=== PATIENT | male | born 1955 | race Caucasian/White ===

== ENCOUNTER 2024-06-16 10:25 | Inpatient (IN) | payer MEDICARE, SELFPAY ==
--- NOTE | 2024-06-13 07:00 | EKG_ITS ---
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
[2024-06-13 07:08] VITALS: BMI 28.4
[2024-06-13 09:41] LABS: Basophils % (Auto) 0 % (0-2.5); Eosinophils # (Auto) 0.3 Thou/mm3 (0.0-0.5); Eosinophils % (Auto) 6 % (0-10); Hematocrit 39.6 % (41.0-53.0); Hemoglobin 13.5 g/dL (13.5-16.0); Immature Granulocytes % (Auto) 0 % (0-0); Immature Granulocytes Auto 0.01 Thou/mm3 (0.00-0.00); Lymphocytes # (Auto) 1.2 Thou/mm3 (1.0-4.8); Lymphocytes % (Auto) 23 % (10-50); Mean Corpuscular HGB Conc 34.1 g/dl (31.0-37.0); Mean Corpuscular Volume 91 fL (80-100); Monocytes # (Auto) 0.5 Thou/mm3 (0.0-0.8); Monocytes % (Auto) 10 % (0-12); Neutrophils # (Auto) 3.3 Thou/mm3 (1.8-7.7); Neutrophils % (Auto) 61 % (37-80); Nucleated Red Blood Cell % 0 /100 WBC (0); Platelet Count 194 Thou/mm3 (140-440); RDW Standard Deviation 41.1 fL (35.1-43.9); Red Blood Count 4.35 Miln/mm3 (4.50-5.90); White Blood Count 5.4 Thou/mm3 (3.8-10.6)
[2024-06-13 10:02] LABS: Alanine Aminotransferase 29 U/L (10-49); Albumin, Serum 4.5 gm/dL (3.4-4.8); Albumin/Globulin Ratio 1.6 (1.2-2.2); Alkaline Phosphatase 101 U/L (46-116); Anion Gap 5 (7-16); Aspartate Amino Transferase 25 U/L (0-34); BUN/Creatinine Ratio 17 Ratio (12-20); Bilirubin,Total 0.7 mg/dL (0.3-1.2); Blood Urea Nitrogen 17 mg/dL (9-23); Calcium 9.9 mg/dL (8.3-10.6); Calcium (Corrected) 9.9 mg/dL (8.5-10.1); Chloride 106 mMol/L (98-107); Estimated Creatinine Clearance 81.1 mL/min (>60); Globulin 2.8 gm/dL (2.3-3.5); Glucose 140 mg/dL (74-106); Osmolality,Calculated 281 (275-295); Potassium 4.7 mMol/L (3.4-5.1); Sodium 139 mMol/L (136-145); Total Protein 7.3 gm/dL (5.7-8.2); eGFR > 60 See Note
--- NOTE | 2024-06-14 13:34 | SUR.PREOP ---
Cardiac records reviewed with Dr Perez.
--- NOTE | 2024-06-15 15:34 | SUR.PREOP ---
Pt notified to come in tomorrow at 1030 for surgery.
[2024-06-16] VITALS (13 sets, daily range): BP systolic 145–179; BP diastolic 74–86; PULSE 69–84; RESP 14–20; TEMP 36.1–36.9; O2SAT 95–99; BMI 27.4
--- NOTE | 2024-06-16 10:53 | CHAP ---
Patient expressed gratitude for visit and prayer.
[2024-06-16] MEDS: RINGERS LACTATED 1000 ML 1,000 ML 20 ML IV (11:04)
--- NOTE | 2024-06-16 14:47 | SUR.OPER ---
(Alesia) updated on case status/progress via phone by Librado HERNÁNDEZ at approx. [phone].
--- NOTE | 2024-06-16 15:39 | PD.SUROPNT ---
Date of Procedure 06/16/24 Pre Op Diagnosis Rectosigmoid tumor Post Op Diagnosis Rectosigmoid tumor Procedure Laparoscopic assisted rectosigmoidectomy Findings Fungating recotsigmoid tumor. No evidence of pelvic or peritoneal nodules. Surface of the liver was smooth without any lesions or nodules. Procedure Description Patient brought into operating room in supine position. After administration of general endotracheal anesthesia, patient was placed in low lithotomy position. His abdomen and perineum prepped and draped in standard surgical manner. A Veress needle was inserted through the umbilicus and pneumoperitoneum was obtained up to 15 mmHg, the Veress needle was then removed. A 5 mm mid epigastric incision was made and 5 mm trocar was placed. Laparoscopic camera was inserted. Under direct visualization a laparoscopic camera a 5 mm trocar was placed in the right mid abdomen, 10 mm trocar placed in right lower quadrant and additional 5 mm trocar was placed in left mid abdomen. Patient was noted to have mildly redundant sigmoid colon. The blue ink marking was identified in the proximal rectum. The mesorectum was divided medially and laterally with harmonic scalpel. Sigmoid colon and descending colon was mobilized by dividing the white line of Toldt. The mesentery was ligated with Enseal harmonic device. Inferior mesenteric artery was ligated near its origin, the inferior mesenteric vein was ligated inferior to the fourth portion of duodenum. Proximal sigmoid near the sigmoid and descending colon junction was divided with [place] stapling device. The mid rectum just distal to the area of blue marking was also divided with stapling device. The end of descending colon was reaching the patient's pelvis without any tension. At this point a small vertical laparotomy incision was made in the infraumbilical region and dissection was deepened into soft tissue. Anterior abdominal fascia was divided and the abdominal cavity was entered. A wound protector was placed. The end of descending colon was brought out of the opening. The end of descending colon was opened, the anvil portion of an EEA stapling device was placed in a pursestring suture using 2-0 Prolene applied. The anal canal and rectum was then sequentially dilated. The anvil stapling device was placed through the patient's anal canal and was advanced anterior to the rectal staple line. The stapler was opened and connected to the anvil, care was taken to make sure orientation was appropriate without tension or any kinking. The stapler was then closed and fired. Staple line was removed, 2 well-formed donuts were retrieved. The integrity of anastomosis was then checked with an air leak test. A rigid proctoscope was placed through the anal canal and air was insufflated. There was no air bubbles in the pelvis assuring anastomosis was airtight. The area was removed and rigid proctoscope was also removed. I reinforced the anastomosis with application of circumferential Lembert sutures using 3-0 silk. The pelvis was washed and irrigated, all the fluids were suctioned and the suction fluid returned clear. Hemostasis was adequate and satisfactory. The specimen was opened on the back table, patient was noted to have a fungating large rectosigmoid tumor with adequate proximal and distal margins. Gowns and gloves were changed. The wound protector was removed. The mini laparotomy fascial defect was closed with PDS strata fix. The wound was washed. The right lower quadrant 10 mm trocar sites fascial defect was also closed with 2-0 Vicryl. All the incisions were closed with gerardo. Appropriate dressings applied. Patient tolerated the procedure well. He was placed in supine position then extubated. He was breathing spontaneously and without difficulty and was transferred to postanesthesia care in stable condition. Anesthesia GETA Pathology / specimen Other (Rectosigmoid) Estimated Blood Loss 50 Condition Stable Disposition PACU Surgeon Mikaela Bills MD Surgical Staff Operation Date: 06/16/24 12:25 Case Staff Anesthesiologist: Matthew Diaz RN First Assistant: Adebayo Mcmanus
--- NOTE | 2024-06-16 15:45 | SUR.PHASEI ---
1545: Pt. AAOx4, vitals stable, breathing unlabored, no complaint of pain or nausea, dressing to ABD CDI, no active bleed noted, ABD Binder in place, report received from MD Diaz and García HERNÁNDEZ.
[2024-06-16] MEDS: KCL 20 mEq/L in 1/2NS 20 MEQ/1,000 ML BAG 75 MEQ IV (16:01)
[2024-06-16] MEDS: MORPHINE SULF 1 MG/ML PCA SYRINGE 30 ML PCA (16:05)
--- NOTE | 2024-06-16 17:20 | SUR.PHASEI ---
1720: Pt. AAOx4, vitals stable, breathing unlabored, complaint of pain, pt. connected to RENDERER Morphine, no complaint of nausea, dressing to ABD CDI, no active bleed noted, ABD Binder in place, report given to Yue HERNÁNDEZ prior to transfer to room 381, family made aware of transfer to room, pt. transferred with all personal belongings.
[2024-06-16] MEDS: CEFOXITIN 2 GM in SODIUM CHLORIDE 0.9% (P) 50 ML IV ×2 (18:10→23:35)
[2024-06-16] MEDS: PANTOPRAZOLE INJ 40 MG VIAL IVP (18:10)
[2024-06-16] MEDS: ACETAMINOPHEN IVPB 1,000 MG/100 ML VIAL 250 MG IV (18:11)
[2024-06-16] MEDS: INSULIN LISPRO (AdmeLOG) 1 UNIT/0.01 ML UNIT SC (18:17)
[2024-06-16] MEDS: ASCORBIC ACID 250 MG TABLET 500 MG PO (20:29)
[2024-06-16] MEDS: DOCUSATE SOD 100 MG CAPSULE PO (20:29)
[2024-06-17] VITALS (13 sets, daily range): BP systolic 132–168; BP diastolic 63–76; PULSE 62–90; RESP 15–21; TEMP 36.4–38; O2SAT 93–98
[2024-06-17] MEDS: INSULIN LISPRO (AdmeLOG) 1 UNIT/0.01 ML UNIT SC (00:07)
[2024-06-17] MEDS: ACETAMINOPHEN IVPB 1,000 MG/100 ML VIAL 250 MG IV ×3 (00:07→12:14)
--- NOTE | 2024-06-17 04:09 | PC.RT ---
PT is in pain, understood instruction well. pt states he will work on IS more during the day when pain is managed better.
[2024-06-17] MEDS: KCL 20 mEq/L in 1/2NS 20 MEQ/1,000 ML BAG 75 MEQ IV (04:28)
[2024-06-17] MEDS: CEFOXITIN 2 GM in SODIUM CHLORIDE 0.9% (P) 50 ML IV ×2 (06:27→12:39)
[2024-06-17] MEDS: amLODIPine BESYLATE 5 MG TABLET 10 MG PO (09:22)
[2024-06-17] MEDS: PANTOPRAZOLE INJ 40 MG VIAL IVP (09:22)
[2024-06-17] MEDS: DOCUSATE SOD 100 MG CAPSULE PO ×2 (09:22→20:24)
[2024-06-17] MEDS: LOSARTAN POTASSIUM 25 MG TABLET 100 MG PO (09:22)
[2024-06-17] MEDS: ASCORBIC ACID 250 MG TABLET 500 MG PO ×2 (09:23→20:25)
[2024-06-17] MEDS: ATORVASTATIN CALCIUM 20 MG TABLET 40 MG PO (09:23)
[2024-06-17] MEDS: ZINC SULFATE 220 MG CAPSULE PO (09:23)
[2024-06-17] MEDS: hydroCHLOROthiazide 12.5 MG CAPSULE 25 MG PO (09:23)
--- NOTE | 2024-06-17 13:34 | ESPR_ITS ---
Documentation for date of: 06/17/24 Subjective Subjective Narrative: Patient is seen and examined. He is complaining of incisional pain, controlled with WAIVER ANALYST and IV Tylenol. He denies nausea or vomiting. He has not passed flatus or bowel movement yet Exam Vital Signs Temp Pulse Resp BP Pulse Ox O2 Del Method O2 Flow Rate 97.8 F 73 18 161/71 H 94 L Room Air 1.5 06/17/24 12:00 06/17/24 12:00 06/17/24 12:00 06/17/24 12:00 06/17/24 12:00 06/17/24 12:00 06/17/24 08:00 Constitutional Constitutional: no acute distress Routine Abdominal Exam Abdominal: Present soft, tenderness (Shayla-incisional tenderness. Incisions are clean, dry and intact) and distended (Mildly distended); Absent normoactive bowel sounds Assessment & Plan Assessment Additional comments: Postop day #1 status post laparoscopic assisted rectosigmoidectomy Plan Will keep n.p.o. with ice chips. Use incentive spirometer and increase ambulation. Procedures Procedures Laparoscopic assisted rectosigmoidectomy
[2024-06-17] MEDS: MORPHINE SULF 1 MG/ML PCA SYRINGE 30 ML PCA (14:06)
[2024-06-17] MEDS: KCL 20 mEq/L in 1/2NS 20 MEQ/1,000 ML BAG 60 MEQ IV (17:00)
[2024-06-18] VITALS (9 sets, daily range): BP systolic 151–176; BP diastolic 65–83; PULSE 72–100; RESP 16–93; TEMP 36.1–37.1; O2SAT 90–98
[2024-06-18 06:15] LABS: Basophils % (Auto) 0 % (0-2.5); Eosinophils # (Auto) 0.1 Thou/mm3 (0.0-0.5); Eosinophils % (Auto) 1 % (0-10); Hematocrit 35.6 % (41.0-53.0); Hemoglobin 12.2 g/dL (13.5-16.0); Immature Granulocytes % (Auto) 0 % (0-0); Immature Granulocytes Auto 0.04 Thou/mm3 (0.00-0.00); Lymphocytes # (Auto) 0.8 Thou/mm3 (1.0-4.8); Lymphocytes % (Auto) 6 % (10-50); Mean Corpuscular HGB Conc 34.3 g/dl (31.0-37.0); Mean Corpuscular Volume 90 fL (80-100); Monocytes # (Auto) 1.2 Thou/mm3 (0.0-0.8); Monocytes % (Auto) 9 % (0-12); Neutrophils # (Auto) 11.1 Thou/mm3 (1.8-7.7); Neutrophils % (Auto) 84 % (37-80); Nucleated Red Blood Cell % 0 /100 WBC (0); Platelet Count 173 Thou/mm3 (140-440); RDW Standard Deviation 41.1 fL (35.1-43.9); Red Blood Count 3.94 Miln/mm3 (4.50-5.90); White Blood Count 13.2 Thou/mm3 (3.8-10.6)
[2024-06-18 06:32] LABS: Anion Gap 8 (7-16); BUN/Creatinine Ratio 14 Ratio (12-20); Blood Urea Nitrogen 14 mg/dL (9-23); Calcium 9.6 mg/dL (8.3-10.6); Calcium (Corrected) 9.6 mg/dL (8.5-10.1); Carbon Dioxide 24.2 mMol/L (20.0-31.0); Chloride 103 mMol/L (98-107); Estimated Creatinine Clearance 78.3 mL/min (>60); Glucose 110 mg/dL (74-106); Magnesium 1.8 mg/dL (1.6-2.6); Osmolality,Calculated 271 (275-295); Phosphorous 3.1 mg/dL (2.4-5.1); Potassium 4.4 mMol/L (3.4-5.1); Sodium 135 mMol/L (136-145); eGFR > 60 See Note
[2024-06-18] MEDS: PANTOPRAZOLE INJ 40 MG VIAL IVP (08:48)
[2024-06-18] MEDS: DOCUSATE SOD 100 MG CAPSULE PO ×2 (08:49→20:35)
[2024-06-18] MEDS: hydroCHLOROthiazide 12.5 MG CAPSULE 25 MG PO (08:49)
[2024-06-18] MEDS: LOSARTAN POTASSIUM 25 MG TABLET 100 MG PO (08:49)
[2024-06-18] MEDS: ATORVASTATIN CALCIUM 20 MG TABLET 40 MG PO (08:50)
[2024-06-18] MEDS: ZINC SULFATE 220 MG CAPSULE PO (08:50)
[2024-06-18] MEDS: ASCORBIC ACID 250 MG TABLET 500 MG PO ×2 (08:50→20:34)
[2024-06-18] MEDS: amLODIPine BESYLATE 5 MG TABLET 10 MG PO (08:50)
[2024-06-18] MEDS: ENOXAPARIN SOD INJ 40 MG/0.4 ML SYRINGE SC (08:51)
[2024-06-18] MEDS: KCL 20 mEq/L in 1/2NS 20 MEQ/1,000 ML BAG 60 MEQ IV (08:51)
--- NOTE | 2024-06-18 11:50 | CHAP ---
Patient was visited by the Spiritual Care Volunteer who prayed for them. (Volunteer was in the hospital from 10:13-11:50).
--- NOTE | 2024-06-18 12:04 | PD.SURPROG ---
Documentation for date of: 06/18/24 Subjective Subjective Narrative: Patient is seen and examined. Pain is improving. He denies nausea or vomiting. He started passing flatus Exam Vital Signs Temp Pulse Resp BP Pulse Ox O2 Del Method O2 Flow Rate 96.9 F 82 18 164/72 H 90 L Room Air 2 06/18/24 08:00 06/18/24 08:50 06/18/24 08:00 06/18/24 08:50 06/18/24 08:00 06/18/24 08:00 06/18/24 06:57 Constitutional Constitutional: no acute distress Routine Abdominal Exam Comments: Abdomen is soft with hypoactive bowel sounds. Minimally distended. Incisions with dressings clean, dry and intact Assessment & Plan Assessment Additional comments: Postop day #2 status post laparoscopic assisted rectosigmoidectomy Plan Will DC Aquino catheter. Start clear liquids. Continue to ambulate and use incentive spirometer. Procedures Procedures Laparoscopic assisted rectosigmoidectomy
[2024-06-18] MEDS: MORPHINE SULF 1 MG/ML PCA SYRINGE 30 ML PCA (12:45)
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
[2024-06-18] MEDS: INSULIN LISPRO (AdmeLOG) 1 UNIT/0.01 ML UNIT SC (20:41)
[2024-06-19] VITALS (11 sets, daily range): BP systolic 148–178; BP diastolic 74–88; PULSE 77–100; RESP 18–94; TEMP 36.1–37.2; O2SAT 92–94; BMI 27.4
[2024-06-19] MEDS: LOSARTAN POTASSIUM 25 MG TABLET 100 MG PO (08:52)
[2024-06-19] MEDS: hydroCHLOROthiazide 12.5 MG CAPSULE 25 MG PO (08:53)
[2024-06-19] MEDS: ENOXAPARIN SOD INJ 40 MG/0.4 ML SYRINGE SC (08:54)
[2024-06-19] MEDS: ASCORBIC ACID 250 MG TABLET 500 MG PO ×2 (08:54→20:58)
[2024-06-19] MEDS: ZINC SULFATE 220 MG CAPSULE PO (08:54)
[2024-06-19] MEDS: DOCUSATE SOD 100 MG CAPSULE PO ×2 (08:54→20:58)
[2024-06-19] MEDS: PANTOPRAZOLE INJ 40 MG VIAL IVP (09:00)
[2024-06-19] MEDS: amLODIPine BESYLATE 5 MG TABLET 10 MG PO (09:00)
[2024-06-19] MEDS: ATORVASTATIN CALCIUM 20 MG TABLET 40 MG PO (09:00)
[2024-06-19] MEDS: INSULIN LISPRO (AdmeLOG) 1 UNIT/0.01 ML UNIT SC ×3 (11:52→20:58)
--- NOTE | 2024-06-19 11:56 | ESPR_ITS ---
Documentation for date of: 06/19/24 Subjective Subjective Narrative: Patient is seen and examined. His pain is improving. His Aquino catheter was removed yesterday, he has been voiding without difficulty. He was started on clear liquids, he is tolerating without nausea or vomiting. He is passing flatus but no bowel movement yet Exam Vital Signs Temp Pulse Resp BP Pulse Ox O2 Del Method O2 Flow Rate 97.1 F 77 18 178/88 H 94 L Room Air 2 06/19/24 08:00 06/19/24 10:24 06/19/24 10:24 06/19/24 09:00 06/19/24 08:00 06/19/24 08:00 06/19/24 08:00 Constitutional Constitutional: no acute distress Routine Abdominal Exam Abdominal: Present soft, normoactive bowel sounds and tenderness (Mild tenderness to palpation around incisions, incisions are clean, dry and intact); Absent distended Assessment & Plan Assessment Additional comments: Postop day #3 status post laparoscopic assisted rectosigmoidectomy Plan Continue clear liquids until return of GI function. Will DC VIRTUAL CLASSROOM MANAGER and start intermittent pain medication Procedures Procedures Laparoscopic assisted rectosigmoidectomy
[2024-06-20] VITALS (10 sets, daily range): BP systolic 137–167; BP diastolic 74–81; PULSE 72–103; RESP 18–96; TEMP 36.2–37.1; O2SAT 92–96
--- NOTE | 2024-06-20 01:46 | PC.NURSE ---
Addendum entered by Chapin Condon RN 06/20/24 01:56: Dr. Trinidad told patient to see how 2nd bowel movement looks like. Dr. Trinidad told EDGAR Samson to watch for SOB, and increased heart rate. Addendum entered by Chapin Condon RN 06/20/24 01:56: Dr. Trinidad in room talking to patient. Addendum entered by Chapin Condon RN 06/20/24 01:49: EDGAR Samson notified Dr. Trinidad and she will talk to patient. Original Note: Patient had a bowel movement that contained bright red blood. Will notify hospitalist.
[2024-06-20] MEDS: MORPHINE SULF INJ 10 MG/ML VIAL 3 MG IVP ×3 (02:55→20:12)
[2024-06-20] MEDS: INSULIN LISPRO (AdmeLOG) 1 UNIT/0.01 ML UNIT SC ×4 (07:34→20:13)
[2024-06-20] MEDS: ZINC SULFATE 220 MG CAPSULE PO (09:07)
[2024-06-20] MEDS: PANTOPRAZOLE INJ 40 MG VIAL IVP (09:07)
[2024-06-20] MEDS: ASCORBIC ACID 250 MG TABLET 500 MG PO ×2 (09:07→20:12)
[2024-06-20] MEDS: ENOXAPARIN SOD INJ 40 MG/0.4 ML SYRINGE SC (09:07)
[2024-06-20] MEDS: DOCUSATE SOD 100 MG CAPSULE PO (09:07)
[2024-06-20] MEDS: hydroCHLOROthiazide 12.5 MG CAPSULE 25 MG PO (09:08)
[2024-06-20] MEDS: LOSARTAN POTASSIUM 25 MG TABLET 100 MG PO (09:08)
[2024-06-20] MEDS: ATORVASTATIN CALCIUM 20 MG TABLET 40 MG PO (09:08)
[2024-06-20] MEDS: amLODIPine BESYLATE 5 MG TABLET 10 MG PO (09:09)
--- NOTE | 2024-06-20 11:36 | ESPR_ITS ---
Documentation for date of: 06/20/24 Subjective Subjective Narrative: Patient is seen and examined. His pain is improving. He started passing flatus and had a small bowel movement. He is tolerating liquid diet and voiding without difficulty Exam Vital Signs Temp Pulse Resp BP Pulse Ox O2 Del Method O2 Flow Rate 97.2 F 87 18 159/79 H 92 L Room Air 2 06/20/24 08:00 06/20/24 09:09 06/20/24 08:00 06/20/24 09:09 06/20/24 08:00 06/20/24 08:00 06/19/24 16:00 Constitutional Constitutional: no acute distress Routine Abdominal Exam Abdominal: Present soft, normoactive bowel sounds and tenderness (Mild mendy- incisional tenderness. Incisions are clean, dry and intact); Absent distended Assessment & Plan Assessment Additional comments: Postop day #4 status post laparoscopic assisted rectosigmoidectomy Plan Will advance to full liquids. If tolerating full liquids and continues to have bowel movement will advance to soft diet tomorrow and possible discharge home tomorrow Procedures Procedures Laparoscopic assisted rectosigmoidectomy
--- NOTE | 2024-06-20 14:49 | CHAP ---
9:30 AM Visited by spiritual care volunteer Provided prayer for Patient.
[2024-06-21] VITALS (9 sets, daily range): BP systolic 134–157; BP diastolic 62–83; PULSE 66–79; RESP 16–94; TEMP 36.2–36.9; O2SAT 91–98
--- NOTE | 2024-06-21 07:57 | PD.SURPROG ---
Documentation for date of: 06/21/24 Subjective Subjective Narrative: Patient is seen and examined. His pain is improving. He is tolerating liquid diet without nausea or vomiting. He started passing flatus and had bowel movement Exam Vital Signs Temp Pulse Resp BP Pulse Ox O2 Del Method O2 Flow Rate 97.4 F 77 16 151/83 H 94 L Room Air 2 06/21/24 07:48 06/21/24 07:48 06/21/24 07:48 06/21/24 07:48 06/21/24 07:48 06/21/24 07:48 06/21/24 07:48 Constitutional Constitutional: no acute distress Routine Abdominal Exam Abdominal: Present soft, normoactive bowel sounds and tenderness (Minimal tenderness around incisions, incisions are clean, dry and intact); Absent distended Assessment & Plan Assessment Additional comments: Postop day #5 status post laparoscopic assisted rectosigmoidectomy Plan Will advance to soft diet. If he is tolerating soft diet and continues to have bowel movement will discharge home later today or possibly tomorrow Procedures Procedures Laparoscopic assisted rectosigmoidectomy
[2024-06-21] MEDS: INSULIN LISPRO (AdmeLOG) 1 UNIT/0.01 ML UNIT SC ×4 (08:08→20:07)
[2024-06-21 08:44] LABS: Basophils % (Auto) 0 % (0-2.5); Eosinophils # (Auto) 0.1 Thou/mm3 (0.0-0.5); Eosinophils % (Auto) 1 % (0-10); Hematocrit 32.5 % (41.0-53.0); Hemoglobin 11.6 g/dL (13.5-16.0); Immature Granulocytes % (Auto) 0 % (0-0); Immature Granulocytes Auto 0.01 Thou/mm3 (0.00-0.00); Lymphocytes # (Auto) 0.6 Thou/mm3 (1.0-4.8); Lymphocytes % (Auto) 8 % (10-50); Mean Corpuscular HGB Conc 35.7 g/dl (31.0-37.0); Mean Corpuscular Hemoglobin 30.9 pg (25.0-35.0); Mean Corpuscular Volume 86 fL (80-100); Monocytes # (Auto) 0.6 Thou/mm3 (0.0-0.8); Monocytes % (Auto) 7 % (0-12); Neutrophils # (Auto) 6.6 Thou/mm3 (1.8-7.7); Neutrophils % (Auto) 84 % (37-80); Nucleated Red Blood Cell % 0 /100 WBC (0); Platelet Count 213 Thou/mm3 (140-440); RDW Standard Deviation 38.3 fL (35.1-43.9); Red Blood Count 3.76 Miln/mm3 (4.50-5.90); White Blood Count 7.9 Thou/mm3 (3.8-10.6)
[2024-06-21] MEDS: PANTOPRAZOLE INJ 40 MG VIAL IVP (09:12)
[2024-06-21] MEDS: DOCUSATE SOD 100 MG CAPSULE PO ×2 (09:13→20:06)
[2024-06-21] MEDS: amLODIPine BESYLATE 5 MG TABLET 10 MG PO (09:13)
[2024-06-21] MEDS: hydroCHLOROthiazide 12.5 MG CAPSULE 25 MG PO (09:13)
[2024-06-21] MEDS: ATORVASTATIN CALCIUM 20 MG TABLET 40 MG PO (09:14)
[2024-06-21] MEDS: ENOXAPARIN SOD INJ 40 MG/0.4 ML SYRINGE SC (09:14)
[2024-06-21] MEDS: ZINC SULFATE 220 MG CAPSULE PO (09:14)
[2024-06-21] MEDS: LOSARTAN POTASSIUM 25 MG TABLET 100 MG PO (09:14)
[2024-06-21] MEDS: ASCORBIC ACID 250 MG TABLET 500 MG PO ×2 (09:14→20:06)
--- NOTE | 2024-06-21 13:52 | PC.SS ---
Follow up note: Pt bowels to be more firm. Pt is currently on liquid diet. Advance diet to soft. Pt is possible d/c tomorrow.
[2024-06-22] VITALS (7 sets, daily range): BP systolic 145–173; BP diastolic 74–86; PULSE 76–83; RESP 16–18; TEMP 36.3–37.1; O2SAT 91–95
[2024-06-22] MEDS: INSULIN LISPRO (AdmeLOG) 1 UNIT/0.01 ML UNIT SC (07:46)
[2024-06-22] MEDS: PANTOPRAZOLE INJ 40 MG VIAL IVP (08:10)
[2024-06-22] MEDS: ZINC SULFATE 220 MG CAPSULE PO (08:11)
[2024-06-22] MEDS: DOCUSATE SOD 100 MG CAPSULE PO (08:11)
[2024-06-22] MEDS: hydroCHLOROthiazide 12.5 MG CAPSULE 25 MG PO (08:11)
[2024-06-22] MEDS: ASCORBIC ACID 250 MG TABLET 500 MG PO (08:12)
[2024-06-22] MEDS: LOSARTAN POTASSIUM 25 MG TABLET 100 MG PO (08:12)
[2024-06-22] MEDS: ATORVASTATIN CALCIUM 20 MG TABLET 40 MG PO (08:14)
[2024-06-22] MEDS: amLODIPine BESYLATE 5 MG TABLET 10 MG PO (08:14)
[2024-06-22] MEDS: ENOXAPARIN SOD INJ 40 MG/0.4 ML SYRINGE SC (08:14)
--- NOTE | 2024-06-22 10:42 | ESDS_ITS ---
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 Biopsy revealed tubulovillous adenoma. Patient was scheduled and underwent laparoscopic assisted rectosigmoidectomy. His Aquino catheter was removed on postop day #2, he was able to void without difficulty. His pain was initially controlled with BATH MIX OPERATOR then with oral pain medication. He was started on clear liquid and his diet was gradually advanced to soft diet. He was eating and tolerating diet well without nausea or vomiting. He started passing flatus and had bowel movements. His incisions are clean, dry and intact. He has remained hemodynamically stable throughout hospitalization. He is being discharged home in stable condition. Status at Discharge Functional status at discharge: independent ambulation Overall status at discharge: patient is progressing back to baseline Exam Vital Signs Temp Pulse Resp BP Pulse Ox O2 Del Method O2 Flow Rate 98.5 F 80 16 173/86 H 95 Room Air 2 06/22/24 07:53 06/22/24 08:14 06/22/24 07:53 06/22/24 08:14 06/22/24 07:53 06/22/24 07:53 06/21/24 16:00 Constitutional Constitutional: no acute distress Routine Abdominal Exam Abdominal: Present soft, normoactive bowel sounds and surgical scars (Incisions are clean, dry and intact); Absent tenderness or distended Discharge Plan Plan Patient Disposition: HOME (Self Care) Prescriptions/Referrals Prescriptions/Med Rec: New hydrocodone-acetaminophen 5-325 mg Tablet 1 tab PO Q6HR MDD 4 PRN (Reason: Pain) Qty: 30 0RF ascorbic acid (vitamin C) [Vitamin C] 250 mg Tablet 500 mg PO BID Qty: 60 0RF docusate sodium 100 mg Capsule 100 mg PO BID Qty: 60 0RF zinc sulfate 50 mg zinc (220 mg) Capsule 220 mg PO QDAY Qty: 30 0RF Continued metformin 500 mg tablet 500 mg PO BID atorvastatin 40 mg tablet 40 mg PO QDAY amlodipine 10 mg tablet 10 mg PO QDAY clopidogrel 75 mg tablet 75 mg PO QDAY Hold Instructions: Resume on 01/27/24. losartan-hydrochlorothiazide 100-25 mg Tablet 1 tab PO QDAY omeprazole 20 mg Capsule,Delayed Release(Dr/Ec) 20 mg PO QDAY Referrals: Martin Rogers BUTTON BRADDER [Primary Care Provider] - Patient/Caregiver Discharge Instructions Discharge Activity: activity as tolerated Print Language: [place] Activity Restrictions/Additional Instructions: Wear abdominal binder at all times. Avoid lifting, straining, pulling or pushing for 8 weeks. May take over the counter oral laxatives if no bowel movement in 2 days. Follow up with Dr. Bills in 2 weeks, call [phone] for an appointment. Continue soft diet for 1 week then may advance diet as tolerated. Stand Alone Forms: [facility]isa Award Info., Patient Portal Info Letter Discharge Order Discharge Orders: Discharge (Routine); Ordered 06/22/24 Ordered By: Mikaela Bills Procedures Procedures Laparoscopic assisted rectosigmoidectomy
== END 2024-06-22 11:20 | disposition home or self-care (01) | DRG 331 ==
LOC: S2W1 11:46 → S3SX 17:26
PROVIDERS: Anesthesiology; Admitting Provider Surgery; PCP Nurse Practitioner; Visit Provider Surgery
PROC: 0DBN4ZZ Excision of Sigmoid Colon, Percutaneous Endoscopic Approach (ICD-10-PCS; CPT 49320; principal; 2024-06-16 12:15)
DX: D12.7 Benign neoplasm of rectosigmoid junction (principal); I25.10 Atherosclerotic heart disease of native coronary artery without angina pectoris; E11.9 Type 2 diabetes mellitus without complications; I10 Essential (primary) hypertension; Z95.1 Presence of aortocoronary bypass graft
CPT/HCPCS: 36415; 80053; 80069; 83735; 85025; 93005; A4217; A4649; J0131; J0461; J0694; J1650; J1815; J2250; J2270; J2371; J2405; J2470; J2704; J2765; J2795; J3010; J3480; J3490; J7050; J7120; A9270; J1596